=== PATIENT | male | born 1935 | race Caucasian/White ===

== ENCOUNTER 2017-04-01 09:22 | Outpatient (CLI) | payer MEDICARE ==
[~2017-04-01] VITALS: Ht 185.4 cm; Wt 72.6 kg
[~2017-04-01 09:22] MED LIST: AMLO5TAB2 PO; ASPI-983 PO; C250T PO; CHOL10007 PO; CLIN300C3 PO; CLOP75TA69 PO; DCS100C PO; DOCU-143 PO; ENAL10TA PO; ENAL5TAB PO; HC A28.3 PR; HYDR-3812 PO; IBUP-30 PO; NAPR220T66 PO; NITR0.4T SL; PANT40TA2 PO; POLY119P PO; POLY17PO6 PO; SIMV10TA3 PO
[2017-04-02] MEDS ORDERED: PANT40TA2 PO (13:11)
== END 2017-04-01 12:00 ==
LOC: PREOP 09:22
PROVIDERS: ATTEND Surgery Pediatric Surgery
DX: Z01.818 Encounter for other preprocedural examination (principal); R10.13 Epigastric pain

== ENCOUNTER 2017-04-02 10:46 | Day surgery (SDC) | payer MEDICARE ==
--- NOTE | 2017-04-01 10:33 | HISTORY AND PHYSICAL ---
DATE OF SERVICE: 04/02/2017 ATTENDING PRIMARY CARE PHYSICIAN: Dr. Esparza HISTORY OF PRESENT ILLNESS: The patient is an 81-year-old male with substernal and epigastric pressure sensation as well as crampy pain. He reports that this has been occurring on an intermittent basis for the past few years; however, has become much more frequent as well as more severe in the past 6 months. He does not report any regurgitation or dysphagia, just a pressure sensation, which is uncomfortable, which may linger and then resolve on its own over time. He also does report classic symptoms of reflux, and after eating greasy as well as acidic foods, will feel this is the same type of sensation when exerting himself. He reports that he was started on omeprazole. However, due to some mild side effects of lightheadedness, he discontinued the medication. He reports his last EGD and colonoscopy was approximately 1996. PAST MEDICAL HISTORY: Lactose intolerance, coronary artery disease, hypertension, degenerative joint disease. PAST SURGICAL HISTORY: Right knee tendon repair in 1989, tonsillectomy, repair of deviated nasal septum in , cardiac catheterization and stent placement x2 in 10/2016. ALLERGIES: No known drug allergies. MEDICATIONS: Amlodipine 5 mg daily, enalapril 10 mg daily, Plavix 75 mg daily, simvastatin 10 mg daily, aspirin 81 mg daily. SOCIAL HISTORY: Negative smoke, negative alcohol. FAMILY HISTORY: Unknown. VITAL SIGNS: Blood pressure 130/60, current weight 162.4 pounds at 6 feet 2 inches. REVIEW OF SYSTEMS: Well-nourished male currently in no acute distress. He is not experiencing shortness of breath or difficulty breathing. No chest pain, palpitations, diaphoresis. No nausea, vomiting with intermittent episodes of epigastric as well as the substernal pressure sensation as well as crampy pain after swallowing as well as classic symptoms of reflux after eating a meal. No regurgitation. No hematemesis or coffee ground emesis. No diarrhea or constipation. No red blood per rectum. No dark tarry stools. No fever or chills. No recent inadvertent weight loss. PHYSICAL EXAMINATION: CHEST: Clear. HEART: Regular. EXTREMITIES: No lower extremity edema, negative Homans sign. HEENT: No scleral icterus. NECK: No cervical lymphadenopathy. ABDOMEN: Soft, nontender, nondistended. ASSESSMENT AND PLAN: An 81-year-old male with symptoms related to gastroesophageal reflux disease as well as possible esophageal stricture and hiatal hernia. His symptoms have progressed over time. For proper diagnosis and treatment, we will proceed with an esophagogastroduodenoscopy as well as biopsy as appropriate as well as possible esophageal balloon dilatation. Job ID: [id number] DocumentID: [id number] Dictated Date: 03/31/2017 16:33:09 Test Conductor Date: 03/31/2017 17:35:32 Dictated By: EARL DRAKE MD MTDD
[~2017-04-02] VITALS: Ht 185.4 cm; Wt 72.6 kg
[2017-04-02] MEDS ORDERED: NALOXONE 0.4 MG/ML 1 ML (NARCAN) VIAL IVP PRN (11:00)
[2017-04-02] MEDS ORDERED: HURRICAINE EXT TUBE (BENZOCAINE) XX PRN (11:00)
[2017-04-02] MEDS ORDERED: NS IV 500 ML 500 ML IV SCH (11:00)
[2017-04-02] MEDS ORDERED: FLUMAZENIL (ROMAZICON) 0.1 MG/ML 5 ML VIAL INJ PRN (11:00)
[2017-04-02 11:20] VITALS: BP 162/81
--- NOTE | 2017-04-02 11:24 | Conscious Sedation/ASA ---
Conscious Sedation Pre-Proced Time Reviewed: 11:22 ASA Class: 2 Airway Mallampati Classification: (q[place]angin appropriate class) I. II. III, IV Lungs Heart ASA score ASA 1: a normal healthy patient ASA 2: a patient with a mild systemic disease (mid diabetes, controlled hypertension, obesity ASA 3: a patient with a severe systemic disease that limits activity (angina , COPD, prior Myocardial infarction) ASA 4: a patient with an incapacitating disease that is a constant threat to life (CHF, renal failure) ASA 5: a moribund patient not expected to survive 24 hrs. (ruptured aneurysm) ASA 6: a declared brain patient whose organs are being harvested. For emergent operations, add the letter E after the classification Grade 2 Sedation Plan: Analgesia, Amnesia, Plan communicated to team members, Discussed options with patient/fam, Discussed risks with patient/fam Note The patient is an appropriate candidate to undergo the planned procedure, sedation, and anesthesia. The patient immediately re-assessed prior to indication. EARL DRAKE MD April 02, 2017 11:23
[2017-04-02] MEDS ORDERED: fentaNYL INJECTION 100 MCG/2 ML AMP ONE (11:29)
[2017-04-02] MEDS ORDERED: MIDAZOLAM 2 MG/2 ML (VERSED) VIAL ONE ×4 (11:29→12:45)
[2017-04-02] MEDS ORDERED: HURRICAINE EXT TUBE (BENZOCAINE) ONE (11:29)
[2017-04-02] MEDS ORDERED: LIDOCAINE JELLY 2% (XYLOCAINE) 5 ML TUBE ONE (11:29)
[2017-04-02] MEDS ORDERED: ACETAMINOPHEN 325 MG TABLET/CAPLET (TYLENOL) PO PRN (11:30)
[2017-04-02] MEDS ORDERED: morphine INJ 10 MG/ML 1ML (SYR OR VIAL) IV PRN (11:30)
[2017-04-02] MEDS ORDERED: ONDANSETRON 4 MG/2 ML (SDV) Z0FRAN IV PRN (11:30)
[2017-04-02] MEDS ORDERED: HYDROcodone/APAP 5 MG/325 MG (LORTAB) TAB PO PRN (11:30)
[2017-04-02] MEDS: MIDAZOLAM 2 MG/2 ML (VERSED) VIAL IVP PRN ×4 (12:25→12:45)
[2017-04-02] MEDS: fentaNYL INJECTION 100 MCG/2 ML AMP IVP PRN ×2 (12:30→12:40)
--- NOTE | 2017-04-02 13:10 | Progress Note-Post Operative ---
Post-Operative Progess Note Surgeon (s)/French Weaver (s) Surgeon EARL DRAKE MD French Weaver: none Pre-Operative Diagnosis epigastric pressure and pain Post-Operative Diagnosis reflux esophagitis(class B-C), small HH(2cm), mild gastritis, mild distal esophageal stricture with schatzki ring. Procedure & Operative Findings Date of Procedure 04/02/17 Procedure Performed/Findings EGD with bx and balloon dilatation. Anesthesia Type CS Estimated Blood Loss Estimated blood loss (mL): minimal Specimens/Packing Specimens Removed GE jxn, antrum EARL DRAKE MD April 02, 2017 1:10 pm
[2017-04-02] MEDS ORDERED: PANT40TA2 PO (13:11)
--- NOTE | 2017-04-02 13:12 | Discharge Inst-Surgical ---
D/C Lap Instructions-KIDO New, Converted, or Re-Newed RX: RX on Chart Follow Up PRN Activity as tolerated High Fiber Diet 25g or more per day Avoid Alcohol, Caffeine, Spicy [place] and Acid foods. Drink 64 fluid oz or more of fluids per day. Symptoms to Report: Fever over 101 degree F, Nausea/Vomiting If any problems/questions: Contact your physician or go to Emergency Room EARL DRAKE MD April 02, 2017 1:11 pm
[2017-04-02 13:15] VITALS: BP 163/85
[2017-04-02 13:45] VITALS: BP 146/76
[2017-04-02 14:10] VITALS: BP 146/76
--- NOTE | 2017-04-02 16:10 | OPERATIVE REPORT ---
DATE OF SERVICE: 04/02/2017 ATTENDING PRIMARY CARE PHYSICIAN: Dr. Esparza. PREOPERATIVE DIAGNOSIS: Epigastric pressure and pain. POSTOPERATIVE DIAGNOSES: Reflux esophagitis between class B and C with a Schatzki's ring. Mild distal esophageal stricture. Small hiatal hernia approximately 2 cm in size, mild gastritis. PROCEDURE: EGD with biopsy and dilatation. SURGEON: Earl Drake MD ANESTHESIA: Conscious sedation. ESTIMATED BLOOD LOSS: Minimal. FINDINGS: Reflux esophagitis between class B and C with a Schatzki's ring and mild distal esophageal stricture. Small hiatal hernia approximately 2 cm in size and mild gastritis. Pylorus and duodenum appeared normal. DISPOSITION: The patient tolerated the procedure well. INDICATION FOR PROCEDURE: The patient is an 81-year-old male with substernal and epigastric pressure sensation and crampy pain. He reports that this has been occurring on an intermittent basis for years; however, has become much more frequent and severe in the past six months. He does not report any regurgitation or dysphagia, just a pressure sensation which is uncomfortable and may linger for some amount of time. He also does not report classic symptoms of reflux and after eating greasy, as well as acidic foods, will feel this type of sensation as well as when exerting himself physically. He was started on omeprazole. However, due to a mild side effect of lightheadedness, he discontinued the medication. DESCRIPTION OF PROCEDURE: The patient was brought to the endoscopy suite, laid in the left lateral decubitus position. After adequate IV pain and sedating medications and conscious sedation anesthesia, the mouthpiece was applied. The endoscope was placed in the mouth, visualizing the pharynx and hypopharyngeal region. Vocal cords, epiglottis and vallecula identified and appeared to be normal. The endoscope was then gently intubated in the esophageal opening and esophagus insufflated. The endoscope was then advanced to the first, second and third portions of the esophagus at the level of the GE junction. The GE junction was intrathoracic and there was a reflux esophagitis between class B and C with a Schatzki's ring and mild distal esophageal stricture. This was biopsied using forceps and electrocautery with visualization of good hemostasis. The endoscope was then advanced into the stomach and the endoscope retroflexed, visualizing a small hiatal hernia approximately 2 cm in size. There was some mild gastritis noted. There were no ulcers, polyps, or any neoplasms identified at the stomach. A biopsy was taken with electrocautery with forceps with visualization of good hemostasis. The endoscope was then advanced to the pylorus and the first and second portions of the duodenum, which appeared normal with no distal obstructions. We then proceeded with dilatation of the distal esophageal stricture. A CRE fixed guidewire balloon was placed under direct visualization. The balloon was first dilated to 3 atmospheres of pressure or 18 mm in diameter with no resistance. We then proceeded to 4.5 atmospheres of pressure, 19 mm with mild resistance. We then proceeded with 6 atmospheres of pressure or 20 mm in diameter with mild resistance and left this in place for approximately 60 seconds. There was also a physical discomfort for the patient indicating a successful dilatation. The balloon was then decompressed and removed. Good hemostasis was observed as well as no mucosal tears. The endoscope was then slowly withdrawn when taking a second look and suctioning all residual air with no additional findings. The patient tolerated the procedure well. We will have him continue with medical management with the necessary lifestyle and diet accommodation including small and more frequent meals, avoidance of eating at night as well as head elevation while lying supine. He also does have a significant reflux that is an atypical form and we will recommend an acid appellate law clerk. We will try Protonix 40 mg daily. Job ID: [id number] DocumentID: [id number] Dictated Date: 04/02/2017 13:06:10 Weapons Officer [employer] Date: 04/02/2017 14:42:25 Dictated By: EARL DRAKE MD
== END 2017-04-02 14:10 | disposition home or self-care (01) ==
LOC: ENDO 10:46
PROVIDERS: ATTEND Surgery Pediatric Surgery
DX: K22.2 Esophageal obstruction (principal); K21.0 Gastro-esophageal reflux disease with esophagitis; K44.9 Diaphragmatic hernia without obstruction or gangrene; K29.70 Gastritis, unspecified, without bleeding; I25.10 Atherosclerotic heart disease of native coronary artery without angina pectoris; I10 Essential (primary) hypertension; Z95.5 Presence of coronary angioplasty implant and graft

== ENCOUNTER 2019-07-09 19:14 | Emergency (ER) | payer MEDICARE ==
[~2019-07-09] VITALS: Ht 185.4 cm; Wt 72.6 kg
[~2019-07-09 19:14] MED LIST changes: +ACHD5005 PO; -HYDR-3812 PO
[2019-07-09] MEDS ORDERED: LIDOCAINE 1% INJ 20 ML 20 ML VIAL INJ ONE (19:45)
[2019-07-09] MEDS ORDERED: TETANUS,DIPTH,PERTUSS P/F (BOOSTRIX) 0.5 ML VIAL IM ONE (19:45)
--- NOTE | 2019-07-09 19:54 | Diagnostic Imaging Report ---
INDICATION: Injury to the right second finger 3 views of the right second finger show no fracture, dislocation or other acute bony abnormality. There are moderately advanced degenerative changes of the interphalangeal joints with narrowing and spurring. IMPRESSION: There are degenerative changes present with no fracture evident. Dictated by: Dictated on workstation # [id number]
[2019-07-09] MEDS ORDERED: TRIM/SULFAMETH 160/800 (SEPTRA DS) TAB PO ONE (20:45)
--- NOTE | 2019-07-09 20:53 | ED General ---
General Chief Complaint: Laceration Stated Complaint: RT FINGER LACERATION Nursing Triage Note: Pt amb to triage w/o difficutly with c/o rt index finger lac. Reports @ approx 1830 on this day, he smashed his finger under a anurag boat. Reports to not be up to date on tetanus vaccine. Nursing Sepsis Screen: No Definite Risk Source of Information: Patient Exam Limitations: No Limitations History of Present Illness Date Seen by Provider: Jul 09, 2019 Time Seen by Provider: 19:33 Initial Comments This 83-year-old gentleman presents to the emergency room with injury to the right index finger. He and his son were moving a small boat. The boat jerked causing them to lose control. The boat fell onto his finger in a crushing and pulling motion. He has a large flap laceration extending from medial to distal on the right index finger pad. No other injuries are noted. He is not up-to-date on his tetanus vaccine. Allergies and Home Medications Allergies Coded Allergies: No Known Drug Allergies (Unverified , 11/25/12) Home Medications Amlodipine Besylate 5 Mg Tablet, 5 MG PO DAILY, (Reported) Ascorbic Acid 250 Mg Tab, 250 MG PO DAILY, (Reported) Aspirin 81 Mg Tablet.dr, 81 MG PO MoWeFr, (Reported) Cholecalciferol (Vitamin D3) 1,000 Unit Capsule, 1,000 UNIT PO DAILY, (Reported) Clopidogrel Bisulfate 75 Mg Tablet, 75 MG PO HS, (Reported) Docusate Sodium 100 Mg Capsule, 100 MG PO BID PRN for CONSTIPATION, (Reported) Enalapril Maleate 10 Mg Tablet, 10 MG PO DAILY, (Reported) Naproxen Sodium 220 Mg Tablet, 220 MG PO HS PRN for PAIN, (Reported) Nitroglycerin 0.4 Mg Tab.subl, 0.4 MG SL UD PRN for CHEST PAIN, (Reported) Pantoprazole Sodium 40 Mg Tablet.dr, 40 MG PO DAILY Prescribed by: EARL DRAKE on 04/02/17 1311 Polyethylene Glycol 3350 17 Gm Powd.pack, 17 GM PO DAILY PRN for CONSTIPATION, (Reported) Simvastatin 10 Mg Tablet, 10 MG PO HS, (Reported) Sulfamethoxazole/Trimethoprim 1 Each Tablet, 1 EACH PO BID Prescribed by: MARISELA URRUTIA on 07/09/192056 Tramadol HCl 50 Mg Tablet, 50 MG PO Q6H PRN for PAIN-BREAKTHROUGH Prescribed by: MARISELA URRUTIA on 07/09/192056 Patient Home Medication List Home Medication List Reviewed: Yes Review of Systems Review of Systems Constitutional: no symptoms reported EENTM: no symptoms reported Respiratory: no symptoms reported Cardiovascular: no symptoms reported Gastrointestinal: no symptoms reported Genitourinary: no symptoms reported Musculoskeletal: see HPI Skin: see HPI Psychiatric/Neurological: No Symptoms Reported Hematologic/Lymphatic: No Symptoms Reported Immunological/Allergic: no symptoms reported Past Kunmscd-Cvzxfy-Qarfdj Hx Past Med/Social Hx: Reviewed and Corrections made Patient Social History Alcohol Use: Rarely Uses Recreational Drug Use: No Smoking Status: Never a Smoker 2nd Hand Smoke Exposure: No Recent Foreign Travel: No Contact w/Someone Who Travel: No Recent Infectious Disease Expo: No Recent Hopitalizations: No Immunizations Up To Date Date of Pneumonia Vaccine: Oct 13, 2011 Date of Influenza Vaccine: Sep 02, 2016 Seasonal Allergies Seasonal Allergies: Yes Past Medical History Surgeries: Yes (knee scope, nasal, ) Coronary Stent, Tonsillectomy Respiratory: No Cardiac: Yes (MITRAL VALVE PROLAPSE,STENT x2) Coronary Artery Disease, Hypertension Neurological: No Reproductive Disorders: No Sexually Transmitted Disease: No Gastrointestinal: Yes Gastroesophageal Reflux Musculoskeletal: Yes Arthritis Endocrine: No Cancer: No Psychosocial: No Integumentary: No Blood Disorders: No Family Medical History No Pertinent Family Hx Physical Exam Vital Signs Vital Signs - First Documented 07/09/19 19:33 Temp 97.9 Pulse 55 Resp 15 B/P (MAP) 178/87 (117) Pulse Ox 99 O2 Delivery Room Air Capillary Refill : NONE Height, Weight, BMI Height: 6'1.00" Weight: 160lbs. 0.0oz. 72.701479dh; 21.1 BMI Method:Stated General Appearance: No Apparent Distress, WD/WN HEENT: PERRL/EOMI, Normal ENT Inspection Neck: Normal Inspection Respiratory: Lungs Clear, Normal Breath Sounds, No Accessory Muscle Use Cardiovascular: Regular Rate, Rhythm, No Edema, No Murmur Extremity: Other (there is a large flap laceration extending from medial to distal on the right index finger pad. Total length of laceration is approximate 4.5 cm. The flap tissue is dusky on the images and light pink in the middle. Bleeding is controlled. 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 and prior injuries) Neurologic/Psychiatric: Alert, Oriented x3, No Motor/Sensory Deficits, Normal Mood/Affect, assistant plant manager II-XII Norm as Tested Skin: Normal Color, Warm/Dry, Other (see extremity exam above) Procedures/Interventions Wound Location: Upper Extremities Other Wound Location Right index finger Wound Length (cm): 4.5 Wound's Depth, Shape: flap, sub Q Wound Explored: clean Irrigated w/ Saline (ccs): 50 Betadine Prep?: Yes Anesthesia: 1% Lidocaine Volume Anesthetic (ccs): 8 Suture: Chromic Suture Size: 4-0 Number of Sutures: 10 Sterile Dressing Applied?: Yes Progress Skin at the base of the finger was cleaned with alcohol pads. Digital block was then performed. The cut ends of tissue were sprayed with lidocaine. The finger tip was then cleaned with alcohol pads. A local injection was also applied at the proximal end of the flap. Wound was then irrigated with normal saline and chlorhexidine soap. It was then rinsed with sterile saline. Betadine prep was applied. 10 sutures of 4-0 chromic were used to tack down the flap. Patient tolerated the procedure well. He was dressed with Xeroform and gauze. Progress/Results/Core Measures Suspected Sepsis Recent Fever Within 48 Hours: No Infection Criteria Present: None New/Unexplained Altered Menta: No Sepsis Screen: No Definite Risk SIRS Temperature:97.9 Pulse: 55 Respiratory Rate: 15 Blood Pressure 178 /87 Mean: 117 Results/Orders My Orders Orders - MARISELA SHUKLA MD Lidocaine 1% Inj 20 Ml (Xylocaine 1% Inj (07/09/19 19:45) Dipht,Pertuss(Acell),Tet Adult (Boostrix (07/09/19 19:45) Finger(S) (07/09/19 19:40) Sulfamethoxazole/Trimet Ds Tab (Bactrim (07/09/19 20:45) Tramadol Tablet (Ultram Tablet) (07/09/19 21:00) Rx-Tramadol Hcl (Rx-Ultram) (07/09/19 20:54) Medications Given in ED Current Medications Medications Dose Ordered Sig/Jerilyn Route Start Time Stop Time Status Last Admin Dose Admin Diphtheria/ Tetanus/Acell Pertussis 0.5 ml ONCE ONCE IM 07/09/19 19:45 07/09/19 19:46 DC 07/09/19 19:58 0.5 ML Lidocaine HCl 20 ml ONCE ONCE INJ 07/09/19 19:45 07/09/19 19:46 DC 07/09/19 19:50 20 ML Tramadol HCl 50 mg ONCE ONCE PO 07/09/19 21:00 07/09/19 21:01 DC 07/09/19 21:05 50 MG Trimethoprim/ Sulfamethoxazole 1 ea ONCE ONCE PO 07/09/19 20:45 07/09/19 20:47 DC 07/09/19 20:57 1 EA Vital Signs/I&O 07/09/19 07/09/19 19:33 21:09 Temp 97.9 97.9 Pulse 55 55 Resp 15 16 B/P (MAP) 178/87 (117) 181/93 (122) Pulse Ox 99 99 O2 Delivery Room Air Room Air Capillary Refill : NONE Blood Pressure Mean: 117 Progress Note : Progress Note Wound was repaired with chromic suture in the usual fashion. Pain was treated with Ultram. Tetanus booster was administered. Wound was dressed and patient was given Bactrim for antibiotic prophylaxis. A take-home pack of Ultram was dispensed for further pain control. Patient was advised to seek referral with the wound care clinic or with Dr. Rodriguez. Have concerns about the flap viability due to its dusky appearance on the edges. Patient was advised the tissue may not be viable and needs close follow-up with a surgeon or wound care. Diagnostic Imaging Diagonstic Imaging: Xray Plain Films/CT/US/NM/MRI: other (right index finger) Comments Right index finger x-ray viewed by me and report reviewed. See report below: NAME: MARBIN RAYA [facility] REC#: [id number] PT STATUS: REG ER : 1935 PHYSICIAN: MARISELA SHUKLA MD ADMIT DATE: 07/09/19/ER Signed Date of Exam: 07/09/19 FINGER(S) INDICATION: Injury to the right second finger 3 views of the right second finger show no fracture, dislocation or other acute bony abnormality. There are moderately advanced degenerative changes of the interphalangeal joints with narrowing and spurring. IMPRESSION: There are degenerative changes present with no fracture evident. Dictated by: Dictated on workstation # [id number] Dict: 07/09/191950 Trans: 07/09/192012 Interpreted by: LUIS MADDOX MD Electronically signed by: LUIS MADDOX MD 07/09/192012 Departure Impression Primary Impression: Finger avulsion Qualified Codes: S61.209A - Unspecified open wound of unspecified finger without damage to nail, initial encounter Disposition: HOME, SELF-CARE Condition: Improved Departure-Patient Inst. Decision time for Depature: 20:48 Referrals: GAURANG RODRIGUEZ MICHAEL G MD SEGLIE, FLOYD R MD (PCP/Family) Primary Care Physician Patient Instructions: Laceration Repair With Stitches (DC) Add. Discharge Instructions: Keep the wound clean and dry. You may replace the dressing if it bleeds or becomes soiled. Elevate the wound to the level of your heart is much as possible to maximize circulation. For pain you may take ibuprofen up to 400 mg every 6 hours as needed and/or Tylenol (acetaminophen) up to 1000 mg every 6 hours as needed. Take ibuprofen with food or milk to avoid stomach irritation. For breakthrough pain you may take Ultram. Please be advised Ultram may cause drowsiness and constipation. You may wish to take a stool softener with it. Contact wound care on Wednesday for follow-up or contact your primary care provider to help you arrange this. Wound care (Dr. Isidro) can be contacted at [phone]. Alternatively, you may follow-up with Dr. Rodriguez (hand surgeon). Return to the emergency room if you have any further problems or concerns. Also return if you develop worsening symptoms such as fevers over 100, escalating pain, spreading redness from the wound, puslike drainage, etc. Because circulation to the flap of skin is poor, tissue recovery may not occur. For this reason close follow-up is necessary. All discharge instructions reviewed with patient and/or family. Voiced understanding. Scripts Sulfamethoxazole/Trimethoprim (Bactrim Ds Tablet) 1 Each Tablet 1 EACH PO BID, #14 TAB Prov: MARISELA SHUKLA MD 07/09/19 Tramadol HCl (Ultram) 50 Mg Tablet 50 MG PO Q6H PRN for PAIN-BREAKTHROUGH, #20 TAB Prov: MARISELA SHUKLA MD 07/09/19 Copy Copies To 1: DIAMANTE PATTERSON MD Copies To 2: JAROD ISIDRO MD, JOSHUA T MD Jul 09, 2019 20:53
[2019-07-09] MEDS ORDERED: RX-TRAMADOL 50 MG (ULTRAM) TAB PPK#4 PO STA (20:54)
[2019-07-09] MEDS ORDERED: TRAM-42 PO (20:57)
[2019-07-09] MEDS ORDERED: SULF1TAB35 PO (20:57)
[2019-07-09 21:09] VITALS: BP 181/93
== END 2019-07-09 21:09 | disposition home or self-care (01) ==
LOC: EDUNIT# 19:14 → ER 19:16
DX: S61.210A Laceration without foreign body of right index finger without damage to nail, initial encounter (principal); I25.10 Atherosclerotic heart disease of native coronary artery without angina pectoris; I10 Essential (primary) hypertension; K21.9 Gastro-esophageal reflux disease without esophagitis; Z79.82 Long term (current) use of aspirin; Z79.02 Long term (current) use of antithrombotics/antiplatelets; Z95.5 Presence of coronary angioplasty implant and graft; Z90.89 Acquired absence of other organs; W23.0XXA Caught, crushed, jammed, or pinched between moving objects, initial encounter
CPT/HCPCS: 12032; 64450; 73140; 90715

== ENCOUNTER → 2019-07-11 | Outpatient (CLI) | payer MEDICARE ==
[~2019-07-11] MED LIST changes: +SULF1TAB35 PO; +TRAM-42 PO
== END ==
LOC: WOUNDCARE 12:55
PROVIDERS: ATTEND Surgery
DX: S61.210A Laceration without foreign body of right index finger without damage to nail, initial encounter (principal); I96 Gangrene, not elsewhere classified
CPT/HCPCS: 99213

== ENCOUNTER → 2019-07-14 | Outpatient (CLI) | payer MEDICARE | LOC: WOUNDCARE 08:15 | PROVIDERS: ATTEND Surgery | DX: S61.210A Laceration without foreign body of right index finger without damage to nail, initial encounter (principal); I96 Gangrene, not elsewhere classified | CPT/HCPCS: 99212 ==

== ENCOUNTER → 2019-07-19 | Outpatient (CLI) | payer MEDICARE | LOC: WOUNDCARE 10:32 | PROVIDERS: ATTEND Surgery | DX: S61.210A Laceration without foreign body of right index finger without damage to nail, initial encounter (principal); I96 Gangrene, not elsewhere classified | CPT/HCPCS: 99212 ==

== ENCOUNTER → 2019-07-26 | Outpatient (CLI) | payer MEDICARE | LOC: WOUNDCARE 10:24 | PROVIDERS: ATTEND Surgery | DX: S61.210D Laceration without foreign body of right index finger without damage to nail, subsequent encounter (principal); I96 Gangrene, not elsewhere classified | CPT/HCPCS: 99212 ==

== ENCOUNTER → 2019-08-09 | Outpatient (CLI) | payer MEDICARE | LOC: WOUNDCARE 08:15 | PROVIDERS: ATTEND Surgery | DX: I96 Gangrene, not elsewhere classified (principal); S61.210A Laceration without foreign body of right index finger without damage to nail, initial encounter | CPT/HCPCS: 99212 ==

== ENCOUNTER → 2019-08-23 | Outpatient (CLI) | payer MEDICARE | LOC: WOUNDCARE 08:27 | PROVIDERS: ATTEND Surgery | DX: S61.210A Laceration without foreign body of right index finger without damage to nail, initial encounter (principal) | CPT/HCPCS: 99212 ==

== ENCOUNTER → 2019-11-21 | Outpatient (CLI) | payer MEDICARE ==
[~2019-11-21] VITALS: Ht 185 cm; Wt 74.0 kg
[~2019-11-21] MED LIST changes: +CATHETER FLUSH 10 ML SYR IV PRN; +REGADENOSON 0.4 MG/5 ML SYR (LEXISCAN) IV ONE
[2019-11-21 13:18] VITALS: BP 189/91
--- NOTE | 2019-11-23 19:19 | STRESS TEST ---
DATE OF SERVICE: 11/21/2019 RESTING AND POST REGADENOSON TECHNETIUM-99M TETROFOSMIN SPECT CT IMAGING Baseline images were carried out after injection of 10.31 mCi of technetium-99m Tetrofosmin. This was followed by 0.4 mg regadenoson and 27.9 mCi of technetium-99m Tetrofosmin for stress imaging. The electrocardiogram showed sinus rhythm at baseline. Prior septal myocardial infarction cannot be excluded. There is nonspecific ST and T-wave abnormality. The electrocardiogram did not change significantly with the regadenoson infusion. The patient tolerated the procedure well. In the recovery phase, there was a 4-beat run of ventricular tachycardia at a rate of approximately 160 beats per minute. Review of images at rest and following stress shows diminished count uptake in the diaphragmatic wall of the left ventricle. This is present both at rest and following regadenoson infusion. Gated images show normal regional wall motion with normal global left ventricular systolic function. Left ventricular end diastolic volume is 81 mL. TID is absent (1.09). Left ventricular ejection fraction is calculated to be 58%. CONCLUSIONS: 1. Abnormal stress test due to a 4-beat run of ventricular tachycardia in the recovery phase. 2. No evidence of significant myocardial ischemia or infarction on myocardial perfusion imaging. 3. Normal regional wall motion. 4. Normal global left ventricular systolic function with a calculated ejection fraction 58%. Job ID: [id number] DocumentID: [id number] Dictated Date: 11/23/2019 16:57:02 Forest Firefighter Date: 11/23/2019 19:17:43 Dictated By: RAGHAV CARLIN MD, MA, FACP, FACC,
== END ==
LOC: CARD 11:19
PROVIDERS: ATTEND Internal Medicine Cardiovascular Disease
DX: I25.10 Atherosclerotic heart disease of native coronary artery without angina pectoris (principal); I77.89 Other specified disorders of arteries and arterioles; I10 Essential (primary) hypertension
CPT/HCPCS: 78452; 93017

== ENCOUNTER → 2020-01-11 | Outpatient (CLI) | payer MEDICARE ==
[~2020-01-11] MED LIST changes: -CATHETER FLUSH 10 ML SYR IV PRN; -REGADENOSON 0.4 MG/5 ML SYR (LEXISCAN) IV ONE
== END ==
LOC: CARD 13:40
PROVIDERS: ATTEND Nurse Practitioner Family
DX: I08.2 Rheumatic disorders of both aortic and tricuspid valves (principal); I47.2 Ventricular tachycardia; I25.10 Atherosclerotic heart disease of native coronary artery without angina pectoris; I10 Essential (primary) hypertension; I65.29 Occlusion and stenosis of unspecified carotid artery; E78.5 Hyperlipidemia, unspecified
CPT/HCPCS: 93225; 93226; 93306

== ENCOUNTER 2022-02-18 08:48 | Emergency (ER) | payer MEDICARE ==
[~2022-02-18] VITALS: Ht 185.4 cm; Wt 68.0 kg
[~2022-02-18 08:48] MED LIST changes: +ASCO250T16 PO; +ASPI-1238 PO; -ASPI-983 PO; -C250T PO; -ENAL10TA PO; +ENAL10TA16 PO; -SULF1TAB35 PO; +SULF1TAB38 PO
--- NOTE | 2022-02-18 09:34 | ED Upper Extremity ---
General Chief Complaint: Upper Extremity Stated Complaint: L ARM SWELLING Nursing Triage Note: PT AMB TO [facility] WITH COMPLAINT OF CELLUITIS TO LEFT ELBOW. STATES WEDNESDAY HAD BURSITIS AND WAS DRAINED AT ON WEDNESDAY. WENT BACK TO ON WEDNESDAY AND HAD ROCEPHIN SHOT. PT FEELS SYMPTOMS ARE WORSENING. PRESCRIBED AMOXICILLIN. Source: patient (LISA QUIGLEY MED STUDENT) History of Present Illness Date Seen by Provider: Feb 18, 2022 Time Seen by Provider: 09:21 Initial Comments Mr. Huffman is a 86yo male with PMH afib on who presents to ED today due to swelling on L elbow. States that about 1 week ago he had bursitis of the elbow. On wednesday, there was draining of the elbow. Was a clear looking fluid that he did not think looked infected. On wednesday his elbow was hard and red so he went to urgent care. He was started on augmentin. The next day it looked worse, went back to urgent care and was given a rocephin shot. They also cultured the wound, the patient believes the culture was from an aspirate of the elbow, and not of the surface of the skin. He is having some mild pain in the elbow, mostly tightness from swelling. He does not feel the pain is in the joint itself. He is a bit worried that the redness is extending distally into his hand. (LISA QUIGLEY MED STUDENT) Initial Comments I was able to contact Wilber Huggins at the [facility] clinic. He reports the drainage of the bursa was by manual expression through an open pore rather than aspiration. The culture was collected from this drainage. Patient denies any fever or chills. He has had continued serous the drainage from the poor over the elbow. He is also had progressive erythema of the forearm and swelling from the elbow to the wrist. There is warmth to the touch on the forearm. He is concerned about developing severe cellulitis. His primary care provider is listed as Dr. Delacruz but he received care for this bursitis from the [facility] walk-in clinic. (MARISELA SHUKLA MD) Allergies and Home Medications Allergies Coded Allergies: No Known Drug Allergies (Unverified , 11/25/12) Patient Home Medication List Home Medication List Reviewed: Yes (MARISELA SHUKLA MD) Amlodipine Besylate (Amlodipine Besylate) 5 Mg Tablet, 5 MG PO DAILY, (Reported) Entered as Reported by: KILO BRISCOE on 11/25/12 08 Ascorbic Acid (Vitamin C) 250 Mg Tab, 250 MG PO DAILY, (Reported) Entered as Reported by: LEONOR BARBOSA on 10/13/16906 Aspirin (Aspirin EC) 81 Mg Tablet.dr, 81 MG PO MoWeFr, (Reported) Entered as Reported by: LEONOR BARBOSA on 10/13/16906 Cholecalciferol (Vitamin D3) (Vitamin D3) 1,000 Unit Capsule, 1,000 UNIT PO DAILY, (Reported) Entered as Reported by: LEONOR BARBOSA on 10/13/16906 Clopidogrel Bisulfate (Plavix) 75 Mg Tablet, 75 MG PO HS, (Reported) Entered as Reported by: LEONOR BARBOSA on 10/13/16902 Docusate Sodium (Colace) 100 Mg Capsule, 100 MG PO BID PRN for CONSTIPATION, (Reported) Entered as Reported by: LEONOR BARBOSA on 10/13/16906 Enalapril Maleate (Enalapril Maleate) 10 Mg Tablet, 10 MG PO DAILY, (Reported) Entered as Reported by: LEONOR BARBOSA on 10/13/16902 Naproxen Sodium (Aleve) 220 Mg Tablet, 220 MG PO HS PRN for PAIN, (Reported) Entered as Reported by: LEONOR BARBOSA on 10/13/16906 Nitroglycerin (Nitrostat) 0.4 Mg Tab.subl, 0.4 MG SL UD PRN for CHEST PAIN, (R eported) Entered as Reported by: LEONOR BARBOSA on 10/13/16906 Pantoprazole Sodium (Protonix) 40 Mg Tablet.dr, 40 MG PO DAILY Prescribed by: EARL DRAKE on 04/02/17 1311 Polyethylene Glycol 3350 (Miralax) 17 Gm Powd.pack, 17 GM PO DAILY PRN for CONSTIPATION, (Reported) Entered as Reported by: LEONOR BARBOSA on 10/13/16 09 Simvastatin (Simvastatin) 10 Mg Tablet, 10 MG PO HS, (Reported) Entered as Reported by: KILO BRISCOE on 11/25/12 08 Sulfamethoxazole/Trimethoprim (Bactrim Ds Tablet) 1 Each Tablet, 1 EACH PO BID Prescribed by: MARISELA PINEDO on 07/09/192056 Sulfamethoxazole/Trimethoprim (Bactrim Ds Tablet) 1 Each Tablet, 1 EACH PO BID Prescribed by: MARISELA PINEDO on 02/18/22 110 Tramadol HCl (Ultram) 50 Mg Tablet, 50 MG PO Q6H PRN for PAIN-BREAKTHROUGH Prescribed by: MARISELA PINEDO on 07/09/192056 Review of Systems Constitutional: No chills, No fever Respiratory: No cough, No short of breath Cardiovascular: No chest pain, No palpitations Gastrointestinal: No abdominal pain, No constipation, No diarrhea, No nausea, No vomiting Genitourinary: No dysuria, No hematuria Musculoskeletal: joint pain (L elbow), joint swelling (L elbow) Skin: other (swelling and redness L elbow) Psychiatric/Neurological: Denies Headache, Denies Numbness (LISA QUIGLEY STUDENT) Past Cwurode-Azgebo-Mkmokz Hx Patient Social History Tobacco Use?: No Use of E-Cig and/or Vaping dev: No Substance use?: No Alcohol Use?: Yes Alcohol Frequency: Once in a while Pt feels they are or have been: No (LISA QUIGLEY) Seasonal Allergies Seasonal Allergies: Yes (LISA QUIGLEY) Past Medical History Surgeries: Yes (knee scope, nasal, ) Coronary Stent, Tonsillectomy Respiratory: No Cardiac: Yes (MITRAL VALVE PROLAPSE,STENT x2) Coronary Artery Disease, Hypertension Neurological: No Reproductive Disorders: No Sexually Transmitted Disease: No Gastrointestinal: Yes Gastroesophageal Reflux Musculoskeletal: Yes Arthritis Endocrine: No Cancer: No Psychosocial: No Integumentary: No Blood Disorders: No (LISA QUIGLEY STUDENT) Family Medical History No Pertinent Family Hx (LISA QUIGLEY) Physical Exam Vital Signs Vital Signs - First Documented 02/18/22 09:00 Temp 35.6 Pulse 72 Resp 19 B/P (MAP) 152/81 (104) Pulse Ox 98 O2 Delivery Room Air (MARISELA SHUKLA MD) Vital Signs Capillary Refill : Less Than 3 Seconds (LISA UQIGLEY STUDENT) Height, Weight, BMI Height: 6'1.00" Weight: 160lbs. 0.0oz. 72.324917le; 19.00 BMI Method:Stated (LISA QUIGLEY MED STUDENT) General Appearance: WD/WN, no apparent distress HEENT: normal ENT inspection Cardiovascular: regular rate, rhythm, no edema, other (Normal left radial pulse) Respiratory: normal breath sounds, no respiratory distress Elbow/Forearm: Left (Inflamed enlarged left olecranon bursa with a small pore draining serous appearing fluid. This area is mildly tender to palpation. There is warmth and swelling extending up into the forearm and to the wrist. There does not appear to be any deep joint pain with palpation or range of motion to suggest septic arthritis.), pain, swelling Wrist: Yes pain, Yes swelling Hand: normal inspection, non-tender, Left Neurologic/Tendon: normal sensation, normal motor functions, normal tendon functions Neurologic/Psychiatric: alert, normal mood/affect, oriented x 3 Skin: warm/dry, other (Erythema as above) (MARISELA SHUKLA MD) Procedures/Interventions Suture Size: 4-0 (LISA QUIGLEY MED STUDENT) Progress Needle aspiration of left olecranon bursa Verbal consent was obtained from the patient. Skin was cleaned with alcohol and approximately 0.5 mL of lidocaine was injected just beneath the skin for local anesthetic. Skin was then prepped with Betadine. A 20-gauge hypodermic needle was then used to enter the bursa space. Approximately 1 mL of slightly bloody serous colored fluid was aspirated from the bursa and sent to lab for culture. There was minimal bleeding after the procedure which was tolerated well. The draining pore and the puncture site were dressed by nursing staff. (MARISELA SHUKLA MD) Progress/Results/Core Measures Results/Orders Lab Results Laboratory Tests Test 02/18/22 10:05 Range/Units White Blood Count 5.0 4.3-11.0 10^3/uL Red Blood Count 3.91 L 4.30-5.52 10^6/uL Hemoglobin 12.6 L 13.3-17.7 g/dL Hematocrit 38 L 40-54 % Mean Corpuscular Volume 96 80-99 fL Mean Corpuscular Hemoglobin 32 25-34 pg Mean Corpuscular Hemoglobin Concent 34 32-36 g/dL Red Cell Distribution Width 12.9 10.0-14.5 % Platelet Count 178 130-400 10^3/uL Mean Platelet Volume 9.0 9.0-12.2 fL Immature Granulocyte % (Auto) 0 % Neutrophils (%) (Auto) 65 42-75 % Lymphocytes (%) (Auto) 19 12-44 % Monocytes (%) (Auto) 14 H 0-12 % Eosinophils (%) (Auto) 2 0-10 % Basophils (%) (Auto) 1 0-10 % Neutrophils # (Auto) 3.3 1.8-7.8 10^3/uL Lymphocytes # (Auto) 0.9 L 1.0-4.0 10^3/uL Monocytes # (Auto) 0.7 0.0-1.0 10^3/uL Eosinophils # (Auto) 0.1 0.0-0.3 10^3/uL Basophils # (Auto) 0.0 0.0-0.1 10^3/uL Immature Granulocyte # (Auto) 0.0 0.0-0.1 10^3/uL Sodium Level 142 135-145 MMOL/L Potassium Level 4.2 3.6-5.0 MMOL/L Chloride Level 106 98-107 MMOL/L Carbon Dioxide Level 25 21-32 MMOL/L Anion Gap 11 5-14 MMOL/L Blood Urea Nitrogen 17 7-18 MG/DL Creatinine 0.86 0.60-1.30 MG/DL Estimat Glomerular Filtration Rate 84 BUN/Creatinine Ratio 20 Glucose Level 130 H 70-105 MG/DL Calcium Level 8.6 8.5-10.1 MG/DL C-Reactive Protein High Sensitivity 3.90 H 0.00-0.50 MG/DL (MARISELA SHUKLA MD) Micro Results Microbiology 02/18/22 Gram Stain, Resulted Pending 02/18/22 Body Fluid Culture - Preliminary, Resulted (MARISELA SHUKLA MD) My Orders Orders - MARISELA SHUKLA MD Basic Metabolic Panel (02/18/22 09:28) Cbc With Automated Diff (02/18/22 09:28) Hs C Reactive Protein (02/18/22 09:28) Ed Iv/Invasive Line Start (02/18/22 09:28) Ceftriaxone 1 Gm Pre-Mix (Rocephin 1 Gm (02/18/22 10:49) Body Fluid Culture (02/18/22 10:49) Clindamycin 900 Mg/50 Ml Ivpb (Cleocin P (02/18/22 11:00) (MARISELA SHUKLA MD) Vital Signs/I&O (MARISELA SHUKLA MD) Blood Pressure Mean: 104 Progress Progress Note : Time: 11:04 Progress Note Patient was seen and evaluated. Labs were obtained. He had a minimal elevation in CRP but no signs of sepsis by lab interpretation or vital signs. Since he has not improved with outpatient therapy, he was offered admission with IV antibiotics. As an alternative he was offered a dose of IV antibiotics in the ER with a broader spectrum of coverage in his outpatient therapy. He selected the latter option. A dose of Rocephin and clindamycin are being infused. Bactrim will be added to his outpatient therapy. He was advised to monitor his progress closely and monitor his temperature. He declined any treatment of pain. With patient's consent, we did obtain an aspiration of the olecranon bur sa under sterile procedure to obtain a more precise culture. See discharge instructions for more discussion. (MARISELA SHUKLA MD) Departure Impression Primary Impression: Infection of left olecranon bursa Additional Impression: Cellulitis of left upper extremity Disposition: 01 HOME, SELF-CARE Condition: Stable Departure-Patient Inst. Decision time for Depature: 11:48 (MARISELA SHUKLA MD) Referrals: FELIX DELACRUZ DO (PCP/Family) Primary Care Physician Patient Instructions: Cellulitis (Skin Infection), Adult ED, Bursitis ED Add. Discharge Instructions: Start your Bactrim antibiotic as soon as you pick it up today. Take the second dose before you go to bed this evening. Then take twice daily along with the Augmentin you are already taking. Complete the course of both antibiotics as prescribed. Follow-up with your primary care provider by phone or in person on Wednesday to review culture results. You should have 2 cultures pending, 1 collected from the skin drainage at the [facility] walk-in clinic and one collected by needle aspiration in the ER. Your antibiotic therapy may be adjusted based on the results of these cultures. You may keep a dressing applied over the draining wounds. The dressing should not be too restrictive so as to decrease blood flow in your arm. You should check your temperature 2 or 3 times a day for the next couple of days. If you have any temperature greater than 100.3 or if you develop chills, you should return to the ER. Call your primary care provider Dr. Pinedo in the ER with questions or concerns over the next few days. Return to the ER if you have any other worsening of condition. All discharge instructions reviewed with patient and/or family. Voiced understanding. Scripts Sulfamethoxazole/Trimethoprim (Bactrim Ds Tablet) 1 Each Tablet 1 EACH PO BID, #20 TAB Prov: MARISELA SHUKLA MD 02/18/22 Copy Copies To 1: FELIX DELACRUZ DO Copies To 2: JENNIFER CALLES DEREK MED STUDENT Feb 18, 2022 09:34 MARISELA SHUKLA MD Feb 18, 2022 11:05
[2022-02-18 10:13] LABS: BASOPHILS % (AUTO) 1 % (0-10); EOSINOPHILS # (AUTO) 0.1 10^3/uL (0.0-0.3); EOSINOPHILS % (AUTO) 2 % (0-10); HEMATOCRIT 38 % (40-54); HEMOGLOBIN 12.6 g/dL (13.3-17.7); LYMPHOCYTES # (AUTO) 0.9 10^3/uL (1.0-4.0); LYMPHOCYTES % (AUTO) 19 % (12-44); MEAN CORPUSCULAR HEMOGLOBIN 32 pg (25-34); MEAN CORPUSCULAR HGB CONC 34 g/dL (32-36); MEAN CORPUSCULAR VOLUME 96 fL (80-99); MONOCYTES # (AUTO) 0.7 10^3/uL (0.0-1.0); MONOCYTES % (AUTO) 14 % (0-12); NEUTROPHILS # (AUTO) 3.3 10^3/uL (1.8-7.8); NEUTROPHILS % (AUTO) 65 % (42-75); PLATELET COUNT 178 10^3/uL (130-400)
[2022-02-18 10:28] LABS: CALCIUM 8.6 MG/DL (8.5-10.1); CREATININE SERUM 0.86 MG/DL (0.60-1.30); POTASSIUM 4.2 MMOL/L (3.6-5.0)
[2022-02-18] MEDS ORDERED: cefTRIAXone 1 GM PRE-MIX 50 ML IV STA (10:49)
[2022-02-18] MEDS ORDERED: CLINDAMYCIN 900 MG/50 ML IVPB 50 ML IV ONE (11:00)
[2022-02-18] MEDS ORDERED: SULF1TAB38 PO (11:04)
[2022-02-18 12:35] VITALS: BP 128/79
== END 2022-02-18 12:35 | disposition home or self-care (01) ==
LOC: EDUNIT# 08:48 → ER 08:49
DX: M71.122 Other infective bursitis, left elbow (principal); L03.114 Cellulitis of left upper limb
CPT/HCPCS: 36415; 80048; 85025; 86141; 87070; 87205